=== PATIENT | female | born 1985 | race Hispanic/Latino ===

== ENCOUNTER → 2020-10-01 | Outpatient (CLI) | payer OTHER ==
[~2020-10-01] MED LIST: OXYC1TAB23 PO; TRAM50TA2 PO
== END ==
LOC: M LABSMTC 10:35
PROVIDERS: ATTEND Anesthesiology
DX: Z01.812 Encounter for preprocedural laboratory examination (principal)

== ENCOUNTER 2020-10-06 05:58 | Day surgery (SDC) | payer SELFPAY ==
[~2020-10-06] VITALS: Ht 160 cm; Wt 69.9 kg
[2020-10-06] MEDS ORDERED: LR 1,000 ML IV ONE (06:00)
[2020-10-06] MEDS ORDERED: LIDOCAINE W/EPINEPHRINE 1% 20ML VIAL As Ordered ONE ×2 (06:45→08:15)
[2020-10-06 06:46] LABS: HEMATOCRIT 41.4 % (36.0-47.0); HEMOGLOBIN 13.7 g/dl (12.0-15.5); MEAN CORPUSCULAR HEMOGLOBIN 28.5 pg (27.0-33.0); MEAN CORPUSCULAR HGB CONC 33.1 g/dl (32.0-36.5); MEAN CORPUSCULAR VOLUME 86.1 fl (80.0-96.0); PLATELET COUNT, AUTOMATED 254 10^3/uL (150-450); RED BLOOD COUNT 4.81 10^6/uL (4.00-5.40); WHITE BLOOD COUNT 5.9 10^3/uL (4.0-10.0)
[2020-10-06] MEDS ORDERED: LIDOCAINE 1% MDV 20ML VIAL As Ordered ONE (06:46)
[2020-10-06] MEDS ORDERED: EPINEPHrine INJ 1 MG/ML 1ML AMP As Ordered ONE (06:46)
[2020-10-06] MEDS ORDERED: BACITRACIN PWD 50,000 UNITS VIAL As Ordered ONE ×2 (06:46→08:34)
[2020-10-06] MEDS ORDERED: BUPIVACAINE LIPOSOME/PF 1.3% 20ML VIAL (13.3MG/ML)(EXPAREL)(C9290 PER1MG) As Ordered ONE (06:47)
[2020-10-06] MEDS ORDERED: TRIAMCINOLONE ACETONIDE SUSP 40 MG/ML VIAL (J3301) As Ordered ONE (07:09)
[2020-10-06] MEDS ORDERED: SCOPOLAMINE 1MG TRANSDERMAL PATCH TOP ONE (07:20)
[2020-10-06] MEDS ORDERED: dexameTHASONE 4 MG/ML 1ML VIAL (J1100 PER 1MG) As Ordered ONE (07:24)
[2020-10-06] MEDS ORDERED: ROCURONIUM BROMIDE 50 MG/5 ML VIAL As Ordered ONE (07:24)
[2020-10-06] MEDS ORDERED: propofoL 200 MG/20 ML VIAL As Ordered ONE ×2 (07:24→08:43)
[2020-10-06] MEDS ORDERED: LIDOCAINE 2% 100MG/5ML SDV (FOR ANES.) As Ordered ONE (07:24)
[2020-10-06] MEDS ORDERED: fentaNYL 250 MCG/5 ML INJECTION (J3010) As Ordered ONE (07:25)
[2020-10-06] MEDS ORDERED: MIDAZOLAM INJ 2MG/2ML VIAL (J2250 PER 1MG) As Ordered ONE (07:25)
[2020-10-06] MEDS ORDERED: LACRILUBE (AKWA TEARS) OPHTH OINT 3.5 GM As Ordered ONE (07:56)
[2020-10-06] MEDS ORDERED: ceFAZolin 1GM VIAL (J0690 PER 500MG) As Ordered ONE (08:02)
[2020-10-06] MEDS ORDERED: SEVOFLURANE INHAL SOLN 250 ML BTL As Ordered ONE (08:39)
[2020-10-06] MEDS ORDERED: HYDROmorphone HCL 2 MG/ML 1ML VIAL (J1170) As Ordered ONE (08:39)
[2020-10-06] MEDS ORDERED: SUGAMMADEX SODIUM 500 MG/5 ML VIAL (BRIDION) As Ordered ONE (08:39)
[2020-10-06] MEDS ORDERED: ONDANSETRON 4MG/2ML VIAL As Ordered ONE (08:39)
[2020-10-06] MEDS ORDERED: METOCLOPRAMIDE INJ 10MG/2ML VIAL (J2765 PER 1) As Ordered ONE (08:40)
[2020-10-06] MEDS ORDERED: ACETAMINOPHEN 1000MG 100ML IV BTL (OFIRMEV) (J0131 PER 10MG) As Ordered ONE (09:20)
--- NOTE | 2020-10-06 09:47 | POST-OPPD ---
Postoperative Procedure Note Date Of Procedure: Oct 06, 2020 PREOPERATIVE DIAGNOSIS: Bilateral breast hypoplasia, chin lipodystrophy, presternal keloid scar POSTOPERATIVE DIAGNOSIS: same FINDINGS: large presternal scar. PROCEDURE: Bilateral breast augmentation. Kenalog injection presternal scar. Chin liposuction. SURGEON: Dr Keys ANESTHESIA: General SPECIMENS: none ESTIMATED BLOOD LOSS: 10cc REPLACED: none DRAINS: none COMPLICATIONS: none POSTOPERATIVE CONDITION: stable IMPLANTS: [place] round smooth gel moderate plus breast implant 350cc x 2. ([id number]) ADRIAN KEYS DO Oct 06, 2020 09:47
--- NOTE | 2020-10-06 09:47 | ROOPDOC ---
[facility] Report Of Operation Report of Operation DATE OF PROCEDURE: 10/06/20 PREOPERATIVE DIAGNOSIS: Bilateral breast hypoplasia, chin lipodystrophy, presternal keloid scar POSTOPERATIVE DIAGNOSIS: same FINDINGS: large presternal scar. PROCEDURE: Bilateral breast augmentation. Kenalog injection presternal scar. Chin liposuction. SURGEON: Dr Keys ANESTHESIA: General SPECIMENS: none ESTIMATED BLOOD LOSS: 10cc REPLACED: none DRAINS: none COMPLICATIONS: none POSTOPERATIVE CONDITION: stable IMPLANTS: [place] round smooth gel moderate plus breast implant 350cc x 2. ([id number]) DESCRIPTION OF PROCEDURE: This is a 34-year-old female who presents to our office complaining of loss of volume of both breasts, lipodystrophy of her chin and keloid scar and mid chest. Informed consent obtained from the patient for bilateral breast augmentation, liposuction of the chin and Kenalog injection off the presternal keloid scar. Risk, benefits, and alternatives were discussed with the patient in detail, and she is ready to proceed. Patient was marked in the upright position in preoperative area. She was brought into the operating room and placed in supine position. General anesthesia was induced. She was prepped and draped in the usual sterile fashion. We started our procedure with breast augmentation. Inframammary incision was carried out 5 cm width on the right side. Was started dissection to create a subglandular pocket for the implant. Dissection was done under direct vision with lighted retractor. Electrocautery was used for hemostasis. Wound is irrigated with bacitracin irrigation solution. 370 mL Ment or gel extra fill sizer was introduced in the pocket, which proven to be too large for her frame. 350 mL [place] gel moderate plus profile sizer was introduced and appeared to fit patient perfectly for her desired look. We choose to use 350 mL implant on that side. 350 mL [place] gel implant moderate plus profile was introduced and a stab glandular pocket on the left side without dif ficulties using Mccullough funnel. Pocket closed in layers with 3-0 Vicryl sutures 3-0 Monocryl sutures. Inframammary incision was carried out 5 cm width on the left side. Was started dissection to create a subglandular pocket for the implant. Dissection was done under direct vision with lighted retractor. Electrocautery was used for hemostasis. Wound is irrigated with bacitracin irrigation solution. 370 mL [place] gel extra fill sizer was introduced in the pocket, which proven to be too large for her frame. 350 mL [place] gel moderate plus profile sizer was introduced and appeared to fit patient perfectly for her desired look. We choose to use 350 mL implant on that side. 350 mL [place] gel implant moderate plus profile was introduced and a stab glandular pocket on the left side without difficulties using Mccullough funnel. Pocket closed in layers with 3-0 Vicryl sutures 3-0 Monocryl sutures. Then we turn our attention to the presternal scar. 1 mL Kenalog 40 mg was mixed with 2 mL of 1% lidocaine with epinephrine, which was infiltrated throughout the presternal scar. Chin liposuction. Small stab incision carried out through the old incision that patient had on inferior part of the chin. Tumescent solution infiltrated throughout the marked area. Total 100 mL of tumescent solution infiltrated. Vaser liposuction at 40% using 2.9 mm 3 ring cannula was done for 1-1/2 minutes, followed by suction assisted lipectomy, which helped evacuate the fatty infiltrate. Smooth appearance achieved. Incision closed with 5-0 Monocryl sutures. Steri-Strips, covered with Telfa and Tegaderm on both breasts, followed by bulky dressing and surgical bra. Chin incision covered with steri strips. Patient was extubated in the operating room without any difficulty and transferred to the recovery room in stable condition. ADRIAN KEYS DO Oct 06, 2020 09:47
[2020-10-06] MEDS ORDERED: OXYC1TAB23 PO (10:15)
[2020-10-06] MEDS ORDERED: oxyCODONE 5MG TAB PO PRN (10:35)
[2020-10-06] MEDS ORDERED: fentaNYL 100 MCG/2 ML INJECTION (J3010) IV PRN (10:35)
[2020-10-06] MEDS ORDERED: LR 1,000 ML IV SCH (10:35)
[2020-10-06] MEDS ORDERED: ONDANSETRON 4MG/2ML VIAL IV PRN (10:35)
[2020-10-06] MEDS ORDERED: TRAM50TA2 PO (11:02)
[2020-10-06 12:10] VITALS: BP 128/69
== END 2020-10-06 12:10 | disposition home or self-care (01) ==
LOC: M SDC 05:58
PROVIDERS: ATTEND Plastic Surgery Surgery of the Hand
DX: N64.82 Hypoplasia of breast (principal); E88.1 Lipodystrophy, not elsewhere classified; L91.0 Hypertrophic scar; Z88.0 Allergy status to penicillin
CPT/HCPCS: 11900; 15876; 19325; 36415; 81025; 85027; C9290; J0131; J0171; J0690; J1100; J1170; J2250; J2405; J2765; J3010; J3301; L8600

== ENCOUNTER 2021-12-02 04:11 | Inpatient (IN) | payer OTHER, SELFPAY ==
[2021-12-02] VITALS (46 sets, daily range): BP systolic 112–180; BP diastolic 58–99
[~2021-12-02] VITALS: Ht 160 cm; Wt 85.0 kg
[2021-12-02] MEDS ORDERED: PRENTAB9 PO (05:20)
[2021-12-02] MEDS ORDERED: IRON65TA2 PO (05:20)
[2021-12-02] MEDS ORDERED: VITA500C24 PO (05:20)
[2021-12-02] MEDS ORDERED: OXYTOCIN DRIP 30 UNITS in IV 1 EA IV PRN (05:30)
[2021-12-02] MEDS ORDERED: METHYLERGONOVINE MALEATE 0.2 MG/ML VIAL (J2210) IM PRN (05:30)
[2021-12-02] MEDS ORDERED: LIDOCAINE 1% MDV 20ML VIAL INFIL PRN (05:30)
[2021-12-02 06:29] LABS: HEMATOCRIT 37.1 % (36.0-47.0); HEMOGLOBIN 12.5 g/dl (12.0-15.5); MEAN CORPUSCULAR HEMOGLOBIN 28.6 pg (27.0-33.0); MEAN CORPUSCULAR HGB CONC 33.7 g/dl (32.0-36.5); MEAN CORPUSCULAR VOLUME 84.9 fl (80.0-96.0); PLATELET COUNT, AUTOMATED 169 10^3/uL (150-450); RED BLOOD COUNT 4.37 10^6/uL (4.00-5.40)
[2021-12-02] MEDS: LR 1,000 ML IV SCH ×3 (13:04→23:25)
[2021-12-02] MEDS ORDERED: ONDANSETRON 4MG/2ML VIAL IV PRN (13:30)
[2021-12-02] MEDS ORDERED: EPIDURAL/PCA KEYS XX PRN (13:30)
[2021-12-02] MEDS ORDERED: EPIDURAL COMMENT XX SCH (13:30)
[2021-12-02] MEDS ORDERED: REFRIGERATOR IV KEYS XX PRN (13:30)
[2021-12-02] MEDS ORDERED: diphenhydrAMINE 50MG/ML VIAL (J1200) IV PRN (13:30)
[2021-12-02] MEDS ORDERED: NALOXONE INJ 0.4MG/1ML VIAL (J2310 PER 1MG) IV PRN (13:30)
[2021-12-02] MEDS ORDERED: FENTANYL 2MCG/ML ROPIVACAINE 0.2% IN 0.9% NACL 100ML IVBAG As Ordered ONE (13:35)
[2021-12-02] MEDS: FENTANYL/ROPIVACAINE/NACL BAG 100 ML EPIDURAL SCH ×2 (14:01→23:00)
[2021-12-02] MEDS: OXYTOCIN DRIP 30 UNITS in IV 1 EA IV SCH ×2 (15:24→17:18)
[2021-12-02] MEDS ORDERED: MEASLES,MUMPS,RUBELLA VACCINE INJ (MMR-II) (90707) SC SCH (17:00)
[2021-12-02] MEDS ORDERED: DOCUSATE SODIUM 100MG CAPSULE PO PRN (17:00)
[2021-12-02] MEDS ORDERED: DIBUCAINE 1% OINTMENT 30GM TOP PRN (17:00)
[2021-12-02] MEDS ORDERED: METHYLERGONOVINE MALEATE 0.2 MG TAB PO PRN (17:00)
[2021-12-02] MEDS ORDERED: ACETAMINOPHEN TAB 650MG DOSE (2X325MG) PO PRN (17:00)
[2021-12-02] MEDS ORDERED: IBUPROFEN 800 MG TAB PO PRN (17:00)
[2021-12-02] MEDS ORDERED: RHOGAM 300 MCG (1500 IU) INJ (J2790) IM SCH (17:00)
[2021-12-03] MEDS: METHYLERGONOVINE MALEATE 0.2 MG TAB PO SCH ×3 (01:26→10:00)
[2021-12-03 06:02] VITALS: BP 112/67
[2021-12-03] MEDS: PRENATAL VITAMINS CHEWABLE TABLET PO SCH (10:01)
[2021-12-03 18:00] VITALS: BP 148/91
[2021-12-04 06:00] VITALS: BP 127/79
[2021-12-04] MEDS ORDERED: COLA100C5 PO (08:43)
[2021-12-04] MEDS ORDERED: PRENCHW PO (08:43)
[2021-12-04] MEDS: PRENATAL VITAMINS CHEWABLE TABLET PO SCH (09:06)
== END 2021-12-04 11:35 | disposition home or self-care (01) | DRG 806 ==
LOC: M LDO 04:11 → M LDI 04:50 → M OBS 20:18
PROVIDERS: ADMIT Obstetrics & Gynecology; ATTEND Registered Nurse
PROC: 10E0XZZ Delivery of Products of Conception, External Approach (ICD-10-PCS; principal; 2021-12-02)
PROC: 0HQ9XZZ Repair Perineum Skin, External Approach (ICD-10-PCS; 2021-12-02)
DX: O69.81X0 Labor and delivery complicated by cord around neck, without compression, not applicable or unspecified (principal); Z37.0 Single live birth; O72.1 Other immediate postpartum hemorrhage; Z3A.40 40 weeks gestation of pregnancy; O76 Abnormality in fetal heart rate and rhythm complicating labor and delivery; O70.0 First degree perineal laceration during delivery